=== PATIENT | male | born 1995 | race Hispanic/Latino ===

== ENCOUNTER 2018-08-29 00:55 | Emergency (ER) | payer OTHER ==
[2018-08-29 01:22] LABS: #Basophils 0.1 thou/uL (0.0-0.2); #Eosinphils 0.1 thou/uL (0.0-0.7); #Lymphocytes 4.7 thou/uL (1.20-3.40); #Monocytes 1.2 thou/uL (0.11-0.59); #Neutrophils 4.3 thou/uL (1.40-6.50); %Basophils 0.9 % (0.0-1.0); %Eosinophils 0.8 % (0.0-10.0); %Lymphocytes 45.1 % (28.0-48.0); %Monocytes 11.3 % (0.0-4.0); %Neutrophils 41.9 % (31.0-61.0); Hemoglobin 14.2 g/dL (14.0-18.0); Mean Corpuscular HGB CONC 34.1 g/dL (32.0-36.0); Mean Corpuscular Hemoglobin 28.5 pg (25.0-35.0); Mean Corpuscular Volume 83.4 fL (78.0-98.0); Platelet Count 274 thou/uL (130-400); RBC Distribution Width 12.2 % (11.5-14.5); Red Blood Cell (RBC) Count 4.98 mill/uL (4.00-5.20); White Blood Cell (WBC) Count 10.3 thou/uL (4.8-10.8)
[2018-08-29 01:43] LABS: ALT (SGPT) 88 U/L (8-55); AST (SGOT) 42 U/L (5-34); Albumin 4.8 g/dL (3.5-5.0); Alkaline Phosphatase 56 U/L (Less than 750); Anion Gap 17 mmol/L (10-20); BUN (Urea Nitrogen) 11 mg/dL (8.9-20.6); Bilirubin, Total 0.3 mg/dL (0.2-1.2); Calc. Creatinine Clearance 0 mL/min (70-130); Calcium 9.6 mg/dL (7.8-10.44); Carbon Dioxide 23 mmol/L (22-29); Chloride 108 mmol/L (98-107); Estimated GFR-MDRD Greater than 90; Globulin 3.2 g/dL (2.4-3.5); Glucose 117 mg/dL (70-105); Potassium 3.5 mmol/L (3.5-5.1); Sodium 144 mmol/L (136-145)
[2018-08-29] MEDS ORDERED: Ondansetron PF 4 MG/2 ML Vial ONE (01:47)
[2018-08-29 01:49] LABS: Acetaminophen Less than 6.0 mcg/mL (10.0-30.0); Alcohol 236 mg/dL (Less than 10); Salicylate Less than 8.0 mg/dL (15.0-30.0)
--- NOTE | 2018-08-29 08:51 | CT ---
PRELIMINARY REPORT/[facility]/EMERGENTY AFTER-HOURS PROCEDURE CT Head Without Contrast EXAM DATE/TIME: 08/29/2018 1:33 AM CLINICAL HISTORY: 22 years old, male; Injury or trauma; Fall; Initial encounter; Abrasion; Not specified; Patient HX: F riend reports patient hitting his head hard when he was first put in the bed of the truck. ETOH TECHNIQUE: Axial computed tomography images of the head/brain without contrast. COMPARISON: No relevant prior studies available. FINDINGS: Brain: No brain edema. No intracranial hemorrhage. Ventricles: Normal. No ventriculomegaly. Bones/joints: Unremarkable. No acute fracture. Sinuses: Incidental sinus mucosal thickening present. No fluid levels to indicate sinusitis. Mastoid air cells: Visualized mastoid air cells are unremarkable. No mastoid effusion. Soft tissues: Unremarkable. IMPRESSION: No acute brain findings. Thank you for allowing us to participate in the care of your patient. Dictated and Authenticated by: Carrington Frias MD 08/29/2018 2:02 AM Central Time ([place] & [place]) FINAL REPORT NONCONTRAST HEAD CT: HISTORY: ETOH. Posttraumatic pain. Hit on the head. COMPARISON: None. FINDINGS/IMPRESSION: This report is in agreement with the preliminary report by [facility]. No intracranial posttraumatic sequel ae. POS: MAKSIM
--- NOTE | 2018-08-29 09:39 | CT ---
PRELIMINARY REPORT/[facility]/EMERGENTY AFTER-HOURS PROCEDURE CT Cervical Spine Without Contrast EXAM DATE/TIME: 08/29/2018 1:31 AM CLINICAL HISTORY: 22 years old, male; Injury or trauma; Fall; Initial encounter; Abrasion; Patient HX: Friend reports p chivo hitting his head hard when he was first put in the bed of the truck. ETOH TECHNIQUE: Axial computed tomography images of the cervical spine without intravenous contrast. Coronal and sagittal reformatted images were created and reviewed. COMPARISON: No relevant prior studies available. FINDINGS: Vertebrae: No acute fracture. Normal alignment. Discs/Spinal canal/Neural foramina: No spinal stenosis. No neural foraminal narrowing. Soft tissues: Unremarkable. Lungs: Lung apices are normal. IMPRESSION: No acute findings. Thank you for allowing us to participate in the care of your patient. Dictated and Authenticated by: Carrington Frias MD 08/29/2018 1:59 AM Central Time ([place] & [place]) FINAL REPORT CT CERVICAL SPINE WITHOUT CONTRAST: HISTORY: Trauma. Pain. COMPARISON: None. FINDINGS: This report is in agreement with the preliminary report by [facility]. No evidence of fracture. Straighten ing of normal cervical lordosis may be due to patient position, muscle spasm, or cervical collar. Th e current study is not tailored to assess for ligamentous injury. MRI if there is concern. POS: YONATHAN
== END 2018-08-29 04:15 | disposition home or self-care (01) ==
LOC: ERS 00:55
DX: F10.129 Alcohol abuse with intoxication, unspecified (principal)
CPT/HCPCS: 70450; 72125; 80053; 80307; 84484; 85025; 93005; 96361; 96374; J2405